=== PATIENT | male | born 1955 | race Caucasian/White ===

== ENCOUNTER 2019-04-19 10:30 | Outpatient (CLI) | payer MEDICARE, OTHER ==
[2019-04-19 16:17] LABS: #Basophils 0.1 thou/uL (0.0-0.2); #Eosinphils 0.3 thou/uL (0.0-0.7); #Lymphocytes 2.2 thou/uL (1.20-3.40); #Monocytes 0.7 thou/uL (0.11-0.59); #Neutrophils 4.3 thou/uL (1.40-6.50); %Basophils 0.9 % (0.0-1.0); %Eosinophils 3.9 % (0.0-10.0); %Lymphocytes 29.4 % (21.0-51.0); %Neutrophils 56.9 % (42.0-75.0); Hemoglobin 15.3 g/dL (14.0-18.0); Mean Corpuscular HGB CONC 34.5 g/dL (32.0-36.0); Mean Corpuscular Hemoglobin 30.1 pg (27.0-31.0); Mean Corpuscular Volume 87.2 fL (78.0-98.0); Platelet Count 273 thou/uL (130-400); RBC Distribution Width 11.4 % (11.5-14.5); Red Blood Cell (RBC) Count 5.07 mill/uL (4.70-6.10); White Blood Cell (WBC) Count 7.5 thou/uL (4.8-10.8)
[2019-04-19 16:23] LABS: INR-International Normal Ratio 2.1; PTT 49.8 SEC (22.9-36.1); Prothrombin Time 23.4 SEC (12.0-14.7)
[2019-04-19 16:38] LABS: ALT (SGPT) 27 U/L (8-55); AST (SGOT) 26 U/L (5-34); Albumin 4.4 g/dL (3.4-4.8); Alkaline Phosphatase 42 U/L (40-110); Anion Gap 15 mmol/L (10-20); BUN (Urea Nitrogen) 24 mg/dL (8.4-25.7); Bilirubin, Total 0.6 mg/dL (0.2-1.2); Calc. Creatinine Clearance 0 mL/min (70-130); Calcium 9.8 mg/dL (7.8-10.44); Carbon Dioxide 25 mmol/L (23-31); Chloride 102 mmol/L (98-107); Estimated GFR-MDRD 43; Globulin 3.4 g/dL (2.4-3.5); Glucose 120 mg/dL (80-115); Potassium 4.2 mmol/L (3.5-5.1); Protein, Total 7.8 g/dL (5.8-8.1); Sodium 138 mmol/L (136-145)
== END 2019-04-19 10:31 | disposition home or self-care (01) ==
LOC: LABBT 10:30
PROVIDERS: ATTEND Internal Medicine Cardiovascular Disease
DX: Z01.818 Encounter for other preprocedural examination (principal); R94.39 Abnormal result of other cardiovascular function study
CPT/HCPCS: 80053; 85025; 85610; 85730; 93005; 93010

== ENCOUNTER 2019-04-21 07:57 | Day surgery (SDC) | payer MEDICARE, OTHER ==
[2019-04-19 15:24] VITALS: BMI 30.7
[2019-04-21 08:53] LABS: ALT (SGPT) 91 U/L (8-55); AST (SGOT) 59 U/L (5-34); Albumin 4.3 g/dL (3.4-4.8); Alkaline Phosphatase 40 U/L (40-110); Anion Gap 12 mmol/L (10-20); BUN (Urea Nitrogen) 20 mg/dL (8.4-25.7); Bilirubin, Total 0.6 mg/dL (0.2-1.2); Calc. Creatinine Clearance 68 mL/min (70-130); Calcium 9.4 mg/dL (7.8-10.44); Carbon Dioxide 26 mmol/L (23-31); Cardiac Risk 5.1 (Less than 4.5); Chloride 104 mmol/L (98-107); Cholesterol 149 mg/dl (< 200 Desired); Estimated GFR-MDRD 48; Globulin 3.3 g/dL (2.4-3.5); Glucose 121 mg/dL (80-115); HDL Cholesterol 29 mg/dL (>60 Neg Risk); LDL Cholesterol, Calculated 78 mg/dL; Potassium 4.3 mmol/L (3.5-5.1); Protein, Total 7.6 g/dL (5.8-8.1); Sodium 138 mmol/L (136-145); Triglycerides 210 mg/dL (Less than 150)
[2019-04-21 09:02] LABS: INR-International Normal Ratio 1.3; Prothrombin Time 15.7 SEC (12.0-14.7)
[2019-04-21 09:03] LABS: PTT 38.4 SEC (22.9-36.1)
[2019-04-21] MEDS ORDERED: Heparin 10,000 UNITS/1 ML VIAL ONE ×2 (10:18→11:08)
[2019-04-21] MEDS ORDERED: Verapamil 5 MG/2 ML VIAL ONE (10:18)
[2019-04-21] MEDS ORDERED: Nitroglycerin 100MG/250ML BOT 250 ML ONE (10:19)
[2019-04-21] MEDS ORDERED: Lidocaine 1% (PF) 30 ML VIAL ONE (10:19)
[2019-04-21] MEDS ORDERED: Fentanyl 100 MCG/2 ML VIAL ONE (10:44)
[2019-04-21] MEDS ORDERED: Midazolam HCl 2 mg/2 ml Vial ONE (10:44)
[2019-04-21] MEDS ORDERED: Iopamidol 370 76% 100 ML VIAL ONE (12:00)
[2019-04-21] MEDS ORDERED: Iopamidol 370 76% 50 ML VIAL FS ONE (12:00)
--- NOTE | 2019-04-25 10:30 | EKG ---
Test Reason : POST STENT Blood Pressure : / mmHG Vent. Rate : 049 BPM Atrial Rate : 049 BPM P-R Int : 186 ms QRS Dur : 132 ms QT Int : 452 ms P-R-T Axes : 051 014 015 degrees QTc Int : 408 ms Marked sinus bradycardia Right bundle branch block Abnormal ECG Confirmed by RIC CASTANEDA MD ([id number]) on 04/25/2019 10:29:44 AM Referred By: SUNNY Confirmed By:RIC CASTANEDA MD
== END 2019-04-21 16:45 | disposition home or self-care (01) ==
LOC: CCL 07:57
PROVIDERS: ATTEND Internal Medicine Cardiovascular Disease
PROC: 4A023N7 Measurement of Cardiac Sampling and Pressure, Left Heart, Percutaneous Approach (ICD-10-PCS; principal; 2019-04-21)
PROC: B201YZZ Plain Radiography of Multiple Coronary Arteries using Other Contrast (ICD-10-PCS; 2019-04-21)
PROC: B205YZZ Plain Radiography of Left Heart using Other Contrast (ICD-10-PCS; 2019-04-21)
PROC: 02H03DZ Insertion of Intraluminal Device into Coronary Artery, One Artery, Percutaneous Approach (ICD-10-PCS; 2019-04-21)
DX: I25.10 Atherosclerotic heart disease of native coronary artery without angina pectoris (principal); I10 Essential (primary) hypertension; E78.5 Hyperlipidemia, unspecified; E66.9 Obesity, unspecified; Z79.01 Long term (current) use of anticoagulants; Z79.899 Other long term (current) drug therapy; Z88.0 Allergy status to penicillin; Z68.30 Body mass index [BMI] 30.0-30.9, adult
CPT/HCPCS: 80053; 80061; 85610; 85730; 92928; 93005; 93458; 93798; 99152; 99153; C1769; C1876; J1644; J2001; J2250; J3010; Q9967